=== PATIENT | female | born 1960 | race Caucasian/White ===

== ENCOUNTER → 2016-07-26 | Outpatient (CLI) | payer OTHER ==
--- NOTE | 2016-07-27 16:24 | CR ---
EXAM DATE: 07/26/16 PATIENT'S AGE: 56 Patient: BLAISE RANGEL Facility: [place], [place] Site . Site : [id number] Study: XRay Chest [id number]/27/2017 4:41:04 PM Ordering Physician: Case Mendenhall Final Report: INDICATION: Cough TECHNIQUE: Chest 2 views. COMPARISON: April 14, 2015 FINDINGS: Cardiovascular and mediastinum: Heart size and vasculature are normal in caliber and appearance. Mediastinum is within normal limits. Lungs and pleural spaces: Lungs are clear. No sign of infiltrate or mass. No sign of pleural effusion. No pneumothorax. Bones and soft tissues: No significant findings. IMPRESSION: No sign of acute disease. Dictated by Margarita Newton MD @ Jul 26 2016 7:47PM (Electronic Signature) Report Signed by Proxy. [facility]
== END ==
LOC: MW.CHFP 16:20
PROVIDERS: ATTEND Emergency Medicine
DX: R05 Cough (principal)
CPT/HCPCS: 71020; 71020-26

== ENCOUNTER → 2016-08-07 | Outpatient (CLI) | payer OTHER ==
[~2016-08-07] MED LIST: Albuterol 0.083% 2.5 MG/3 ML Neb Soln NEB ONE; Albuterol 0.083% 2.5 MG/3 ML Neb Soln ONE
== END ==
LOC: MW.RT 13:31
PROVIDERS: ATTEND Emergency Medicine
DX: R05 Cough (principal)
CPT/HCPCS: 94060; 94727; 94729

== ENCOUNTER → 2016-08-09 | Outpatient (CLI) | payer OTHER ==
--- NOTE | 2016-08-09 16:52 | CR ---
EXAMINATION: Left wrist HISTORY: Injury COMPARISON: None TECHNIQUE: 3 views FINDINGS/IMPRESSION: There is no acute osseous subglottic, dislocation, or fracture identified. Bone mineralization and joint spaces appear normal. There is a small ossific density projecting anterior to the wrist on the lateral view, well-corticated, likely an old injury.
--- NOTE | 2016-08-09 16:54 | CR ---
EXAMINATION: Left shoulder HISTORY: Injury COMPARISON: None TECHNIQUE: 3 views FINDINGS/IMPRESSION: There is no acute osseous abnormality, dislocation, or fracture identified. Bon e mineralization and joint spaces appear normal. 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
--- NOTE | 2016-08-09 16:54 | CR ---
EXAMINATION: Left elbow HISTORY: Injury COMPARISON: None TECHNIQUE: 4 views FINDINGS: There is a moderate left elbow joint effusion however the etiology is uncertain. There is possibly a small fracture along the radial aspect of the radial head. Otherwise the visualized osseo us structures appear intact. Bone mineralization is normal. IMPRESSION: Moderate joint effusion with a possible nondisplaced radial head fracture.
== END ==
LOC: MW.CHFP 13:15
PROVIDERS: ATTEND Physician Assistant
DX: S57.02XA Crushing injury of left elbow, initial encounter (principal); S49.92XA Unspecified injury of left shoulder and upper arm, initial encounter; M25.422 Effusion, left elbow
CPT/HCPCS: 73030-26-LT; 73030-LT; 73080-26-LT; 73080-LT; 73110-26-LT; 73110-LT

== ENCOUNTER 2017-12-17 13:03 | Emergency (ER) | payer OTHER ==
[2017-12-17 13:17] VITALS: BP 121/62
[2017-12-17] MEDS ORDERED: Ketorolac 30 MG/ML SDV IM ONE (13:26)
--- NOTE | 2017-12-17 13:34 | EDM.PDOC ---
ED HPI GENERAL MEDICAL PROBLEM - General Chief Complaint: Back Pain or Injury Stated Complaint: BACK PAIN Time Seen by Provider: 12/17/17 13:27 Source of Information: Reports: Patient History Limitations: Reports: No Limitations - History of Present Illness INITIAL COMMENTS - FREE TEXT/NARRATIVE: HISTORY AND PHYSICAL: History of present illness: Patient is a 57-year-old female here with complaint of low back pain. She states that she was at work yesterday lifting and moving boxes when she felt a tweak her low back. She states that she started having pain in her low back last night and today. She states she has some tingling down the outside of her left leg. She denies any saddle anesthesia, loss of bowel or bladder control, foot drop, lower extremity weakness, fevers, chills, hematuria, dysuria. She has not taken anything for her pain. She does have a history of a lumbar discectomy years ago. Review of systems: As per history of present illness and below otherwise all systems reviewed and negative. Past medical history: As per history of present illness and as reviewed below otherwise noncontributory. Surgical history: As per history of present illness and as reviewed below otherwise noncontributory. Social history: No reported history of drug or alcohol abuse. Family history: As per history of present illness and as reviewed below otherwise noncontributory. Physical exam: General: Patient sitting comfortably in no acute distress and nontoxic appearing HEENT: Atraumatic, normocephalic, pupils reactive, negative for conjunctival pallor or scleral icterus, mucous membranes moist, throat clear, neck supple, nontender, trachea midline. No meningeal signs. Lungs: Clear to auscultation, breath sounds equal bilaterally, chest nontender. Heart: S1S2, regular, negative for clicks, rubs, or overt murmur. Abdomen: Soft, nondistended, nontender. Negative for masses or hepatosplenomegaly. Negative for costovertebral tenderness. Pelvis: Stable nontender. Genitourinary: Deferred. Rectal: Deferred. Spine: pain to palpation of the lumbar spinous processes and SI joints bilaterally. Pain to palpation of the left lumbar paraspinals with muscle spasm noted. Patellar reflexes 2+. Inversion, eversion, dorsi and plantar flexion strength 5/5. Extremities: Atraumatic, negative for cords or calf pain. Neurovascular unremarkable. Neuro: Awake, alert, oriented. Cranial nerves II through XII unremarkable. Cerebellum unremarkable. Motor and sensory unremarkable throughout. Exam nonfocal. Notes: Diagnostics: Declines UA and lumbar x-ray Therapeutics: Toradol 30mg IM Prescriptions: Flexeril 10mg Diclofenac 50mg Impression: Lumbar back pain Plan: 1. Take flexeril and diclofenac as instructed. Heat or ice as needed. 2. Follow up with primary care provider 3. Return to ED as needed as discussed Definitive disposition and diagnosis as appropriate pending reevaluation and review of above. back pain Pain Score (Numeric/FACES): 7 - Related Data Allergies Allergy/AdvReac Type Severity Reaction Status Date / Time horseflies Allergy Anaphylactic Uncoded 12/17/17 13:14 Shock Home Meds: Home Meds Albuterol [Ventolin HFA] 8 gm INH ONETIME PRN 11/10/15 [History] Cyclobenzaprine [Flexeril] 10 mg PO BEDTIME #10 tab 12/17/17 [Rx] Diclofenac Sodium [Voltaren] 50 mg PO BID #20 tab.ec 12/17/17 [Rx] Past Medical History Respiratory History: Reports: COPD - Infectious Disease History Infectious Disease History: Reports: None - Past Surgical History Other Musculoskeletal Surgeries/Procedures:: back surgery Social & Family History - Family History Family Medical History: Noncontributory - Tobacco Use Smoking Status *Q: Current Every Day Smoker Years of Tobacco use: 40 Packs/Tins Daily: 0.5 - Caffeine Use Caffeine Use: Reports: Coffee - Alcohol Use Days Per Week of Alcohol Use: 2 Number of Drinks Per Day: 3 Total Drinks Per Week: 6 - Recreational Drug Use Recreational Drug Use: No ED ROS GENERAL - Review of Systems Review Of Systems: ROS reveals no pertinent complaints other than HPI. ED EXAM,LOWER BACK PAIN/INJURY - Physical Exam Exam: See Below (see dictation) Course - Vital Signs Last Recorded V/S: Last Vital Signs Temp 35.3 C 12/17/17 13:15 Pulse 70 12/17/17 13:15 Resp 20 12/17/17 13:15 BP 121/62 12/17/17 13:15 Pulse Ox 98 12/17/17 13:15 - Orders/Labs/Meds Meds: Medications Discontinued Medications Generic Name Dose Route Start Last Admin Trade Name Freq PRN Reason Stop Dose Admin Ketorolac Tromethamine 30 mg 12/17/17 13:26 Toradol IM 12/17/17 13:27 ONETIME ONE Departure - Departure Time of Disposition: 13:34 Disposition: Home, Self-Care 01 Condition: Good Clinical Impression: Lumbar back sprain - Discharge Information Prescriptions: Cyclobenzaprine [Flexeril] 10 mg PO BEDTIME #10 tab Diclofenac Sodium [Voltaren] 50 mg PO BID #20 tab.ec Referrals: PCP,None [Primary Care Provider] - Forms: ED Department Discharge Additional Instructions: The following information is given to patients seen in the emergency department who are being discharged to home. This information is to outline your options for follow-up care. We provide all patients seen in our emergency department with a follow-up referral. The need for follow-up, as well as the timing and circumstances, are variable depending upon the specifics of your emergency department visit. If you don't have a primary care physician on staff, we will provide you with a referral. We always advise you to contact your personal physician following an emergency department visit to inform them of the circumstance of the visit and for follow-up with them and/or the need for any referrals to a consulting specialist. The emergency department will also refer you to a specialist when appropriate. This referral assures that you have the opportunity for follow-up care with a specialist. All of these measure are taken in an effort to provide you with optimal care, which includes your follow-up. Under all circumstances we always encourage you to contact your private physician who remains a resource for coordinating your care. When calling for follow-up care, please make the office aware that this follow-up is from your recent emergency room visit. If for any reason you are refused follow-up, please contact the [facility] Emergency Department at and asked to speak to the emergency department charge nurse. [facility] [address] [place] [id number] 1. Take flexeril and diclofenac as instructed. Heat or ice as needed. 2. Follow up with primary care provider 3. Return to ED as needed as discussed
== END 2017-12-17 13:45 | disposition home or self-care (01) ==
LOC: MW.ED 13:03
DX: S33.5XXA Sprain of ligaments of lumbar spine, initial encounter (principal); F17.210 Nicotine dependence, cigarettes, uncomplicated; Z91.09 Other allergy status, other than to drugs and biological substances; X50.0XXA Overexertion from strenuous movement or load, initial encounter; Y99.0 Civilian activity done for income or pay
CPT/HCPCS: 96372; 99283; J1885

== ENCOUNTER 2019-04-30 06:56 | Day surgery (SDC) | payer OTHER ==
[~2019-04-30 06:56] MED LIST changes: -Albuterol 0.083% 2.5 MG/3 ML Neb Soln NEB ONE; -Albuterol 0.083% 2.5 MG/3 ML Neb Soln ONE; +Lactated Ringers 1,000 ML IV SCH; +Sodium Chloride 0.9% 10 ML SDV IV PRN; +Sodium Chloride 0.9% 10 ML Syringe FLUSH PRN; +Sodium Chloride 0.9% 2.5 ML Syringe FLUSH PRN
[2019-04-30] MEDS ORDERED: Midazolam 1 MG/ML 2 ML SDV ONE (07:07)
[2019-04-30] MEDS ORDERED: Propofol 200 MG/20 ML SDV ONE (07:07)
--- NOTE | 2019-04-30 07:59 | PCM.PREANE ---
Preanesthetic Assessment - Anesthesia/Transfusion/Family Hx Anesthesia History: Prior Anesthesia Without Reaction Transfusion History: No Prior Transfusion(s) - Review of Systems General: No Symptoms Pulmonary: No Symptoms Cardiovascular: No Symptoms Gastrointestinal: No Symptoms Neurological: No Symptoms Other: Reports: None - Physical Assessment NPO Status Date: 04/30/19 NPO Status Time: 03:00 Vital Signs: Last Vital Signs Temp 36.7 C 04/30/19 07:23 Pulse 65 04/30/19 07:23 Resp 15 04/30/19 07:23 BP 114/72 04/30/19 07:23 Pulse Ox 92 L 04/30/19 07:23 Height: 1.65 m Weight: 73.482 kg ASA Class: 2 Mental Status: Alert & Oriented x3 Airway Class: Mallampati = 2 Dentition: Reports: Normal Dentition Thyro-Mental Finger Breadths: 3 Mouth Opening Finger Breadths: 3 ROM/Head Extension: Full Lungs: Clear to Auscultation, Normal Respiratory Effort Cardiovascular: Regular Rate, Regular Rhythm - Allergies Allergies/Adverse Reactions: Allergies Allergy/AdvReac Type Severity Reaction Status Date / Time horseflies Allergy Anaphylactic Uncoded 04/24/19 08:17 Shock - Acknowledgements Anesthesia Type Planned: MAC Pt an Appropriate Candidate for the Planned Anesthesia: Yes Alternatives and Risks of Anesthesia Discussed w Pt/Guardian: Yes Pt/Guardian Understands and Agrees with Anesthesia Plan: Yes PreAnesthesia Questionnaire HEENT History: Reports: Other (See Below) Other HEENT History: wears glasses Cardiovascular History: Reports: None (had cardiac cath 2015 was negative) Respiratory History: Reports: COPD (used Breo this morning) Gastrointestinal History: Reports: None Genitourinary History: Reports: None Musculoskeletal History: Reports: Fracture, Neck Pain, Chronic (denies pain today) Other Musculoskeletal History: hx fx left radius Neurological History: Reports: None Psychiatric History: Reports: None Endocrine/Metabolic History: Reports: None Hematologic History: Reports: None Immunologic History: Reports: None Oncologic (Cancer) History: Reports: None Dermatologic History: Reports: Psoriasis - Infectious Disease History Infectious Disease History: Reports: None - Past Surgical History Head Surgeries/Procedures: Reports: None HEENT Surgical History: Reports: None Cardiovascular Surgical History: Reports: None Respiratory Surgical History: Reports: None GI Surgical History: Reports: None Female Surgical History: Reports: Tubal Ligation Endocrine Surgical History: Reports: None Neurological Surgical History: Reports: Lumbar Spine Other Neurological Surgeries/Procedures: hx back surgery Musculoskeletal Surgical History: Reports: Other (See Below) Other Musculoskeletal Surgeries/Procedures:: back surgery Oncologic Surgical History: Reports: None Dermatological Surgical History: Reports: None - SUBSTANCE USE Smoking Status *Q: Current Every Day Smoker (40 years) Tobacco Use Within Last Twelve Months: Cigarettes Days Per Week of Alcohol Use: 1 Recreational Drug Use History: No - HOME MEDS Home Medications: Home Meds Albuterol [Ventolin HFA] 2 puff INH ASDIRECTED PRN 11/10/15 [History] Betamethasone Dipropionate [Diprosone 0.05% Crm] 1 applic TOP DAILY 04/15/19 [ History] Fluticasone/Vilanterol [Breo Ellipta 100-25 MCG Inhalation Kit] 1 puff INH DAILY 04/15/19 [History] - CURRENT (IN HOUSE) MEDS Current Meds: Current Medications Lactated Ringer's (Ringers, Lactated) 1,000 mls @ 125 mls/hr IV ASDIRECTED ELLIOT Last Admin: 04/30/19 07:15 Dose: 125 mls/hr Sodium Chloride (Saline Flush) 10 ml FLUSH ASDIRECTED PRN PRN Reason: Keep Vein Open Sodium Chloride (Saline Flush) 2.5 ml FLUSH ASDIRECTED PRN PRN Reason: Keep Vein Open Sodium Chloride (Saline Flush) 10 ml FLUSH ASDIRECTED PRN PRN Reason: Keep Vein Open Sodium Chloride (Saline Flush) 2.5 ml FLUSH ASDIRECTED PRN PRN Reason: Keep Vein Open Sodium Chloride (Normal Saline) 10 ml IV ASDIRECTED PRN PRN Reason: IV Use Discontinued Medications Midazolam HCl (Versed 1 Mg/Ml) Confirm Administered Dose 2 mg .ROUTE .STK-MED ONE Stop: 04/30/19 07:08 Propofol (Diprivan 20 Ml) Confirm Administered Dose 400 mg .ROUTE .STK-MED ONE Stop: 04/30/19 07:08
--- NOTE | 2019-04-30 09:22 | PCM.POSTAN ---
POST ANESTHESIA ASSESSMENT - MENTAL STATUS Mental Status: Alert, Oriented - VITAL SIGNS Vital Signs: Last Vital Signs Temp 97.5 F 04/30/19 09:07 Pulse 58 L 04/30/19 09:17 Resp 12 04/30/19 09:17 BP 118/61 04/30/19 09:17 Pulse Ox 97 04/30/19 09:17 - RESPIRATORY Respiratory Status: Respiratory Rate WNL, Airway Patent, O2 Saturation Stable - CARDIOVASCULAR CV Status: Pulse Rate WNL, Blood Pressure Stable - GASTROINTESTINAL GI Status: No Symptoms - POST OP HYDRATION Hydration Status: Adequate & Stable
--- NOTE | 2019-04-30 09:22 | PCM48HPAN ---
Post Anesthesia Note - EVALUATION WITHIN 48HRS OF ANESTHETIC Vital Signs in Normal Range: Yes Patient Participated in Evaluation: Yes Respiratory Function Stable: Yes Airway Patent: Yes Cardiovascular Function Stable: Yes Hydration Status Stable: Yes Pain Control Satisfactory: Yes Nausea and Vomiting Control Satisfactory: Yes Mental Status Recovered: Yes Vital Signs: Last Vital Signs Temp 97.5 F 04/30/19 09:07 Pulse 58 L 04/30/19 09:17 Resp 12 04/30/19 09:17 BP 118/61 04/30/19 09:17 Pulse Ox 97 04/30/19 09:17
[2019-04-30 09:38] VITALS: BP 118/58; PULSE 61
--- NOTE | 2019-04-30 09:46 | PCM.OPNOTE ---
- General Post-Op/Procedure Note Date of Surgery/Procedure: 04/30/19 Operative Procedure(s): Screening colonoscopy Findings: Sigmoid colon polyp x 2, transverse colon polyp, rectal polyp Pre Op Diagnosis: Screening colonoscopy Post-Op Diagnosis: Sigmoid colon polyp x 2, transverse colon polyp x 1, rectal polyp x 1 Anesthesia Technique: MAC Primary Surgeon: Maria Eugenia Santo Condition: Good Free Text/Narrative:: Intake & Output 04/29/19 04/30/19 04/30/19 22:59 06:59 14:59 Intake Total 400 Balance 400
--- NOTE | 2019-04-30 12:24 | OR ---
SURGEON: MARIA EUGENIA SANTO MD DATE OF PROCEDURE: 04/30/2019 PREOPERATIVE DIAGNOSIS: Screening colonoscopy. POSTOPERATIVE DIAGNOSES: Sigmoid colon polyps x2, transverse colon polyp x1, rectal polyp x1. PROCEDURE PERFORMED: Screening colonoscopy with polypectomy. PRIMARY SURGEON: Maria Eugenia Santo MD. ANESTHESIA: MAC. INSTRUMENT USED: Olympus colonoscope. EXTENT OF EXAM: To the cecum. PREPARATION: Good. LIMITATIONS: None. INDICATIONS FOR EXAMINATION: The patient is a 58-year-old female who presents for screening colonoscopy. I explained the procedure; expected perioperative course; and risks including bleeding, infection, or damage to surrounding structures including perforation. The patient verbalized understanding and wishes to proceed. PROCEDURE IN DETAIL: The patient was brought into the endoscopy suite and placed in the left lateral decubitus position. A time-out was completed verifying the patient's name, age, date of , allergies, and procedure to be performed. Monitored anesthesia care was induced and continuous oxygen was provided via nasal cannula throughout the procedure. After adequate sedation was achieved, a digital rectal exam was performed. This exam was within normal limits. A well-lubricated colonoscope was inserted in the rectum and advanced under direct visualization to the level of the cecum. The cecum was identified by both visual and anatomic landmarks. A photograph was taken of the cecal cap as well as with the scope retroflexed within the cecum. The scope was then fully withdrawn while examining the color, texture, anatomy, and integrity of the mucosa from the cecum to the anal canal. The patient was found to have small sessile polyps in the colon. There was one in the transverse colon, two in the sigmoid colon, and one in the rectum. These were all removed in piecemeal fashion using cold biopsy forceps. The scope was brought into the rectum and retroflexed to allow visualization of the anal canal opening. This appeared normal and a photograph was taken. Scope was then straightened and fully withdrawn. The cecum to anus time was 17 minutes. The patient tolerated the procedure well and was transferred to the PACU in stable condition. ENDOSCOPIC DIAGNOSES: Sigmoid colon polyps x2, transverse colon polyp x1, rectal polyp x1. RECOMMENDATIONS: Follow up in clinic in 2 weeks. MALIHA / LULY /[id number]
== END 2019-04-30 09:40 | disposition home or self-care (01) ==
LOC: MW.SDS 06:56
PROVIDERS: ATTEND Surgery
DX: Z12.11 Encounter for screening for malignant neoplasm of colon (principal); K63.5 Polyp of colon; J44.9 Chronic obstructive pulmonary disease, unspecified; E78.00 Pure hypercholesterolemia, unspecified; F32.9 Major depressive disorder, single episode, unspecified; F41.9 Anxiety disorder, unspecified; Z91.038 Other insect allergy status; F17.210 Nicotine dependence, cigarettes, uncomplicated; Z79.51 Long term (current) use of inhaled steroids; Z79.899 Other long term (current) drug therapy
CPT/HCPCS: 45380; 88305; J2250; J2704; J7120

== ENCOUNTER 2021-04-07 21:38 | Emergency (ER) | payer BC, OTHER ==
--- NOTE | 2021-04-08 00:16 | CR ---
INDICATION: Shortness of breath TECHNIQUE: Chest radiograph 1 view COMPARISON: 01/30/2019 FINDINGS: The sensitivity and specificity of the exam are moderately limited by the patient`s body habitus. Mediastinum: The mediastinum is normal in appearance. The heart silhouette is normal in size and morphology. Lung: Small lung volumes are present with mild bibasilar subsegmental atelectasis seen. No sign of pleural effusion seen. No pneumothorax is identified. Bone and Soft tissue: Unremarkable for age. IMPRESSION: 1. Small lung volumes are present with mild bibasilar subsegmental atelectasis seen. Dictated by Jose Rios MD @ 04/08/2021 12:14:17 AM Dictated by: Jose Rios MD @ 04/08/2021 00:14:22 (Electronically Signed)
[2021-04-08 00:19] LABS: CORONAVIRUS COVID-19 NAA NEGATIVE (NEGATIVE); INFLUENZA A NAA NEGATIVE (NEGATIVE); INFLUENZA B NAA NEGATIVE (NEGATIVE)
[2021-04-08] MEDS ORDERED: Ketorolac 30 MG/ML SDV IM ONE (00:24)
--- NOTE | 2021-04-08 01:05 | EDM.PDOC ---
ED HPI GENERAL MEDICAL PROBLEM - General Chief Complaint: Respiratory Problem Stated Complaint: DIFFICULTY BREATHING Time Seen by Provider: 04/07/21 23:43 - History of Present Illness INITIAL COMMENTS - FREE TEXT/NARRATIVE: CHIEF COMPLAINT(S): Headache HISTORY OF PRESENT ILLNESS: This is a 60-year-old woman with a past medical history of asthma who is fully vaccinated who comes to the emergency department with a chief complaint of headache. The patient states that starting earlier this morning she started to experience a headache which is throughout her head. She describes it as mild at onset and has progressively gotten worse. She describes it as bifrontal not associated with any blurry vision, double vision or loss of vision. She currently rates the pain as 7 out of 10. She denies any trouble walking, speaking or swallowing. She states that in addition to the headache she noted some tingling in her right arm and left arm. She denies any chest pain or shortness of breath but states that she felt like she could not catch her breath and was breathing funny. She denies any lower extremity edema, recent travel, recent surgery or prior history of DVT or PE. She does not describe this as the worst headache of her life. She denies any head injury or loss of consciousness. She states that there is no exacerbating factors and there have been no relieving factors. REVIEW OF SYSTEMS: Constitutional: Denies fever, chills. Eyes: Denies eye pain Ears, Nose, Mouth, & Throat: Denies earache Cardiovascular: Denies chest pain Respiratory: Denies shortness of breath Gastrointestinal: Denies Nausea, vomiting, diarrhea, hematochezia. Genitourinary: Denies hematuria Skin:Denies a rash MSK: Denies joint pain Neurological: Positive for headache and bilateral arm paresthesias. Denies any trouble walking, speaking or swallowing, vision changes Psychiatric: Denies depression PAST MEDICAL HISTORY: As per history of present illness and as reviewed below otherwise noncontributory. SURGICAL HISTORY: As per history of present illness and as reviewed below otherwise noncontributory. SOCIAL HISTORY: As per history of present illness and as reviewed below otherwise noncontributory. FAMILY HISTORY: As per history of present illness and as reviewed below otherwise noncontributory. EXAMINATION OF ORGAN SYSTEMS/BODY AREAS: Constitutional: Blood pressure was 119/57, heart rate 76, respiratory rate 20 with an oxygen saturation 94% on room air. Temperature 36.5 General: Middle-aged woman who does not appear to be in acute distress Psychiatric: Appropriate mood and affect. Eyes: No scleral icterus or conjunctival erythema holes were equal round reactive to light. Extraocular movements intact. No nystagmus noted. ENMT: Moist mucous membranes. No pharyngeal erythema no stridor, drooling, trismus. Bilateral tympanic membranes without any bulging or erythema. Cardiovascular: Regular, rate, and rhythm. No gallops, murmurs, or rubs. Bilateral upper extremity pulses symmetric and intact. No peripheral edema. No JVD. Respiratory: Lungs clear to auscultation bilaterally. No wheezes, rales, or rhonchi. Gastrointestinal: Soft, non-tender, non-distended. Normoactive bowel sounds Genitourinary: No suprapubic tenderness Musculoskeletal: Normal range of motion. Skin: No lesions or abrasions. Neurological: Alert, GCS 15 strength and sensation grossly intact in upper and lower extremities bilaterally. Ambulation without any difficulty. MEDICAL DECISION MAKING AND COURSE IN THE ED WITH INTERPRETATION/REVIEW OF DIAGNOSTIC STUDIES: This is a 60-year-old woman with a past medical history of asthma who comes to the emergency department with bilateral arm paresthesias and bifrontal headache who is borderline hypoxic. At this time low the patient is fully vaccinated we will obtain Covid and influenza swabs. We did obtain a screening EKG which was unremarkable. Given the borderline hypoxia will obtain a chest x-ray. We will treat the patient symptomatically with Toradol for pain relief and reevaluate. Laboratory: COVID and influenza are negative. The radiological images were viewed by myself along with reading the report from the radiologist. Chest x-ray does not reveal any cardiopulmonary process other than mild subsegmental atelectasis. On reevaluation patient reported that her headache had resolved. I did discuss that at this time strict return precautions. I did encourage her to get repeat testing if she had continued or worsening symptoms. She was amenable to discharge and had no further questions DISPOSITION: The patient was discharged home in stable condition. The patient will follow up with primary care physician in 3 to 5 days CONDITION: Fair PROCEDURES: None FINAL IMPRESSION(S)/DIAGNOSES: 1. Acute headache Ayaan Grey M.D. Headache Pain Score (Numeric/FACES): 7 - Related Data Allergies Allergy/AdvReac Type Severity Reaction Status Date / Time horseflies Allergy Anaphylactic Uncoded 04/07/21 22:05 Shock Home Meds: Home Meds Albuterol [Ventolin HFA] 2 puff INH ASDIRECTED PRN 11/10/15 [History] Betamethasone Dipropionate [Diprosone 0.05% Crm] 1 applic TOP DAILY 04/15/19 [History] Fluticasone/Vilanterol [Breo Ellipta 100-25 MCG Inhalation Kit] 1 puff INH DAILY 04/15/19 [History] Past Medical History HEENT History: Reports: Other (See Below) Other HEENT History: wears glasses Cardiovascular History: Reports: None Respiratory History: Reports: COPD Gastrointestinal History: Reports: None Genitourinary History: Reports: None Musculoskeletal History: Reports: Fracture, Neck Pain, Chronic Other Musculoskeletal History: hx fx left radius Neurological History: Reports: None Psychiatric History: Reports: None Endocrine/Metabolic History: Reports: None Hematologic History: Reports: None Immunologic History: Reports: None Oncologic (Cancer) History: Reports: None Dermatologic History: Reports: Psoriasis - Infectious Disease History Infectious Disease History: Reports: None - Past Surgical History Head Surgeries/Procedures: Reports: None HEENT Surgical History: Reports: None Cardiovascular Surgical History: Reports: None Respiratory Surgical History: Reports: None GI Surgical History: Reports: None Female Surgical History: Reports: Tubal Ligation Endocrine Surgical History: Reports: None Neurological Surgical History: Reports: Lumbar Spine Other Neurological Surgeries/Procedures: hx back surgery Musculoskeletal Surgical History: Reports: Other (See Below) Other Musculoskeletal Surgeries/Procedures:: back surgery Oncologic Surgical History: Reports: None Dermatological Surgical History: Reports: None Social & Family History - Family History Family Medical History: No Pertinent Family History - Tobacco Use Second Hand Smoke Exposure: No - Caffeine Use Caffeine Use: Reports: None - Recreational Drug Use Recreational Drug Use: No ED ROS GENERAL - Review of Systems Review Of Systems: See Below ED EXAM, GENERAL - Physical Exam Exam: See Below Course - Vital Signs Last Recorded V/S: Last Vital Signs Temp 36.5 C 04/07/21 22:02 Pulse 75 04/08/21 02:17 Resp 16 04/08/21 02:17 BP 102/47 L 04/08/21 02:17 Pulse Ox 94 L 04/08/21 02:17 - Orders/Labs/Meds Labs: Laboratory Tests 04/07/21 Range/Units 23:36 Influenza Type A RNA NEGATIVE (NEGATIVE) Influenza Type B RNA NEGATIVE (NEGATIVE) SARS-CoV-2 RNA (CABRERA) NEGATIVE (NEGATIVE) Meds: Medications Discontinued Medications Generic Name Dose Route Start Last Admin Trade Name Grant PRN Reason Stop Dose Admin Ketorolac Tromethamine 30 mg 04/08/21 00:24 04/08/21 00:31 Ketorolac 30 Mg/Ml Sdv IM 04/08/21 00:25 30 mg ONETIME ONE Administration Departure - Departure Time of Disposition: :04 Disposition: Home, Self-Care 01 Condition: Fair Clinical Impression: Headache - Discharge Information *PRESCRIPTION DRUG MONITORING PROGRAM REVIEWED*: No *COPY OF PRESCRIPTION DRUG MONITORING REPORT IN PATIENT ELIAS: No Instructions: General Headache Without Cause Referrals: Sudhakar Willoughby MD [Primary Care Provider] - Forms: ED Department Discharge Additional Instructions: You were evaluated today on an emergent basis. At this time your Covid and influenza screening were negative. In addition the chest x-ray that we obtained which did not reveal any other abnormality. Does appear that you are taking small breaths therefore I recommend the incentive spirometer as described by our nursing staff. You are vaccinated however given the headache and the borderline oxygen I would like you to repeat testing if your symptoms do worsen. Please return to the emergency department if you notice any further weakening especially if you cannot move 1 side of your body or the other, you cannot speak, feel like you are having trouble walking or if you have chest pain or shortness of breath. Otherwise follow-up with your primary care physician in 3 to 5 days [facility] [address] [place] [id number] [address] [id number] The patient is informed of any results of their evaluation and diagnostic workup and all questions are answered. They are given discharge instructions and return precautions. The patient is stable for discharge. The patient states they understand and agree with the plan and that they will return if their symptoms get worse or if they have any new concerns. The following information is given to patients seen in the emergency department who are being discharged to home. This information is to outline your options for follow-up care. We provide all patients seen in our emergency department with a follow-up referral. The need for follow-up, as well as the timing and circumstances, are variable depending upon the specifics of your emergency department visit. If you don't have a primary care physician on staff, we will provide you with a referral. We always advise you to contact your personal physician following an emergency department visit to inform them of the circumstance of the visit and for follow-up with them and/or the need for any referrals to a consulting specialist. The emergency department will also refer you to a specialist when appropriate. This referral assures that you have the opportunity for follow-up care with a specialist. All of these measure are taken in an effort to provide you with optimal care, which includes your follow-up. Under all circumstances we always encourage you to contact your private physician who remains a resource for coordinating your care. When calling for follow-up care, please make the office aware that this follow-up is from your recent emergency room visit. If for any reason you are refused follow-up, please contact the [facility] Department at and asked to speak to the emergency department charge nurse. Sepsis Event Note (ED) - Evaluation Sepsis Screening Result: No Definite Risk
[2021-04-08 02:18] VITALS: BP 102/47; PULSE 75
--- NOTE | 2021-04-08 05:58 | PCM.EKG ---
#1 Interpretation EKG Date: 04/07/21 Time: 23:43 Rhythm: NSR Rate (Beats/Min): 80 [place]: LAD-Left [place] Deviation P-Wave: Present QRS: Other (Incomplete RBBB and LAFB) ST-T: Normal QT: Normal Comparison: No Change (01/30/19) EKG Interpretation Comments: Sinus Rhythm
== END 2021-04-08 02:18 | disposition home or self-care (01) ==
LOC: MW.ED 21:38
DX: R51.9 Headache, unspecified (principal); Z91.048 Other nonmedicinal substance allergy status; Z20.822 Contact with and (suspected) exposure to COVID-19
CPT/HCPCS: 0240U; 71045; 93005; 96372; 99284; J1885